=== PATIENT | female | born 1990 | race Caucasian/White ===

== ENCOUNTER 2021-12-03 19:56 | Emergency (ER) | payer OTHER, SELFPAY ==
[2021-12-03 20:04] VITALS: BP 131/57; PULSE 113; RESP 28; TEMP 38.8; O2SAT 95; BMI 29.0
--- NOTE | 2021-12-03 20:14 | XRR_ITS ---
PROCEDURE INFORMATION: Exam: XR Chest Exam date and time: 12/03/2021 8:25 PM Age: 31 years old Clinical indication: Shortness of breath; Additional info: SOB TECHNIQUE: Imaging protocol: XR of the chest. Views: 1 view. COMPARISON: No relevant prior studies available. FINDINGS: Lungs: Left lower lobe atelectasis versus minimal infiltrate. Pleural spaces: Unremarkable. No pleural effusion. No pneumothorax. Heart/Mediastinum: Unremarkable. No cardiomegaly. Bones/joints: Unremarkable. XR/XR chest 1V portable [id number] IMPRESSION: Left lower lobe atelectasis versus minimal infiltrate.
--- NOTE | 2021-12-03 20:17 | ED_ITS ---
HPI - SOB/Dyspnea General: Chief Complaint: Shortness of Breath/Dyspnea Stated Complaint: SOB/wheezing Time Seen by Provider: 12/03/21 20:09 Source: patient Mode of arrival: ambulatory Limitations: no limitations History of Present Illness: HPI Narrative: 31-year-old female who has a history of asthma states that she is been having a fever along with some generalized body aches over the last 2 days. States that over that time her asthma is worsened as well she has been having doing more breathing treatments. States that today her asthma was much worse. Patient does have wheezing here and tachypnea able to speak in full senses but has some moderate distress. She denies any chest pain or abdominal pain. No known sick contacts. Associated symptoms: Reports fever(s); Deny abdominal pain, chest pain, nausea or vomiting Review of Systems Const: Reports: fever(s) and chills Eyes: Denies: blurry vision or eye discomfort ENMT: Denies: throat pain or dental pain Card: Denies: chest pain Resp: Reports: dyspnea, non-productive cough and wheezing GI: Denies: abdominal pain, nausea, vomiting or diarrhea : Denies: dysuria Musc: Denies: neck pain or back pain Skin/Breast: Denies: rash Neuro: Denies: headache(s) Psych: Denies: depression Bin/Lymph: Denies: easy bruising All/Imm: Denies: urticaria PFSH ED PFSH: Medical History Asthma Social History Smoking and tobacco status: never smoked Physical Exam Const: COMMON NORMALS: patient oriented x3 and healthy appearing GENERAL APPEARANCE: in distress HENMT: COMMON NORMALS: normocephalic and atraumatic HEAD & SCALP: normocephalic and atraumatic Eye: COMMON NORMALS: Equal, round and reactive pupils present and EOMs intact bilaterally PUPIL: Yes Equal, round and reactive pupils present Neck/C-Spine: COMMON NORMALS: full ROM and supple Chest: COMMONS NORMALS: normal inspection of the chest and normal palpation of entire chest wall Resp: EFFORT & INSPECTION: Yes tachypneic and Yes respiratory distress AUSCULTATION: wheezes and diminished lung sounds Cardio: COMMON NORMALS: regular rate, regular rhythm and No murmurs present (Cardio) RATE: regular rate RHYTHM: regular rhythm GI: COMMON NORMALS: Normal to inspection, nondistended, normoactive bowel sounds present, Soft to palpation, non-tender and no masses PALPATION: Yes Soft to palpation Extremity: COMMON NORMALS: normal to inspection and full ROM Neuro: COMMON NORMALS: patient oriented x3, moves all extremities and no focal motor deficits Psych: COMMON NORMALS: mental status grossly normal, Normal thought process present and cooperative THOUGHT PROCESS: Normal thought process present Skin: COMMON NORMALS: no rashes or lesions noted and no wounds GENERAL SKIN EXAM: no rashes or lesions noted Course Vital Signs: Vital signs: Vital Signs Temperature 101.9 F H 12/03/21 20:04 Pulse Rate 100 12/03/21 20:23 Respiratory Rate 20 H 12/03/21 20:23 Blood Pressure 131/57 12/03/21 20:04 Pulse Oximetry 98 12/03/21 20:23 MDM - SOB/Dyspnea Medical Decision Making Patient presents here with asthma exacerbation likely from influenza she did test positive for influenza she feels much improved after steroids and breathing treatment no longer has any respiratory distress does not require any oxygen will start on Tamiflu along with a 5-day steroid taper she is stable for discharge is to follow-up with PCP and return if worsening. Lab Data : 12/03/21 20:20 12/03/21 20:20 Labs/Radiology: Radiology Impressions Chest X-Ray 12/03/21 20:14 IMPRESSION: Left lower lobe atelectasis versus minimal infiltrate. Laboratory Results WBC 3.3 10^3/uL (4.0-10.0) L 12/03/21 20:20 RBC 4.36 10^6/uL (4.1-5.3) 12/03/21 20:20 Hgb 12.4 g/dL (11.5-15.3) 12/03/21 20:20 Hct 37.3 % (37.0-47.0) 12/03/21 20:20 MCV 85.6 fl (81-99) 12/03/21 20:20 MCH 28.4 pg (28.0-34.0) 12/03/21 20:20 MCHC 33.2 g/dL (30.0-36.0) 12/03/21 20:20 RDW 12.9 % (12.1-15.1) 12/03/21 20:20 Plt Count 171 10^3/cmm (130-400) 12/03/21 20:20 MPV 11.1 fL (7.4-10.4) H 12/03/21 20:20 Neut % (Auto) 62.3 % 12/03/21 20:20 Lymph % (Auto) 20.8 % 12/03/21 20:20 Gilliam % (Auto) 15.4 % 12/03/21 20:20 Eos % (Auto) 0.6 % 12/03/21 20:20 Baso % (Auto) 0.6 % 12/03/21 20:20 Neut # (Auto) 2.06 10^3/uL (1.8-7.7) 12/03/21 20:20 Lymph # (Auto) 0.7 10^3/uL (0.8-4.8) L 12/03/21 20:20 Gilliam # (Auto) 0.5 10^3/uL (0.2-0.9) 12/03/21 20:20 Eos # (Auto) 0.0 10^3/uL (0.0-0.8) 12/03/21 20:20 Baso # (Auto) 0.0 10^3/uL (0.0-0.1) 12/03/21 20:20 Nucleated RBC % (auto) 0 % 12/03/21 20:20 Nucleated RBCs # 0.0 /100WBC 12/03/21 20:20 Sodium 135 mmol/L (136-145) L 12/03/21 20:20 Potassium 3.8 mmol/L (3.5-5.1) 12/03/21 20:20 Chloride 101 mmol/L (98-107) 12/03/21 20:20 Carbon Dioxide 22 mmol/L (22-29) 12/03/21 20:20 Anion Gap 15.8 (5-19) 12/03/21 20:20 BUN 8 mg/dL (6-20) 12/03/21 20:20 Creatinine 0.8 mg/dL (0.5-0.9) 12/03/21 20:20 GFR Calculation 82.6 mL/min (90-130) L 12/03/21 20:20 Glucose 96 mg/dL (65-115) 12/03/21 20:20 Calculated Osmolality 278 mOsm/kg (285-295) L 12/03/21 20:20 Calcium 8.8 mg/dL (8.5-10.5) 12/03/21 20:20 Total Bilirubin 0.2 mg/dL (0.15-1.2) 12/03/21 20:20 AST 22 U/L (0-32) 12/03/21 20:20 ALT 18 U/L (0-33) 12/03/21 20:20 Alkaline Phosphatase 66 IU/L (35-105) 12/03/21 20:20 Total Protein 6.9 g/dL (6.6-8.7) 12/03/21 20:20 Albumin 4.0 g/dL (3.5-5.2) 12/03/21 20:20 Globulin 2.9 g/dL (1.3-4.6) 12/03/21 20:20 Influenza Type A Ag Positive (Negative) H 12/03/21 20:40 Influenza Type B Ag Negative (Negative) 12/03/21 20:40 SARS-CoV-2 Ag (Rapid) Negative (Negative) 12/03/21 20:40 Discharge Plan Discharge Patient Disposition: Home Clinical Impression: Asthma with exacerbation, Influenza A Prescriptions: New prednisone 50 mg tablet 50 mg PO DAILY Qty: 5 0RF Tamiflu 75 mg capsule 75 mg PO Q12H 5 Days Qty: 10 0RF No Action citalopram 20 mg tablet 20 mg PO DAILY 0RF albuterol sulfate 90 mcg/actuation HFA aerosol inhaler 2 puff INHALATION Q6H PRN (Reason: Shortness Of Breath) 0RF Discharge Orders: Discharge ED (Routine); Ordered 12/03/21 Ordered By: Hiren Tiwari Discharge Diet: Advance as tolerated Discharge Activity: Resume usual activity Patient Instructions: Asthma (ED), Influenza (ED) Coding Level of Care Code ED Neurodiagnostic Tech for Tino Fwd Exam Comprehensive
[2021-12-03] MEDS: ipratropium-albuterol 3 mL Neb INHALATION (20:21)
[2021-12-03 20:23] VITALS: PULSE 100; RESP 20; O2SAT 98
[2021-12-03 20:35] LABS: Basophils % 0.6 %; Eosinophils % 0.6 %; Hematocrit 37.3 % (37.0-47.0); Hemoglobin 12.4 g/dL (11.5-15.3); Lymphocytes # 0.7 10^3/uL (0.8-4.8); Lymphocytes % 20.8 %; Mean Corpuscular HGB Conc 33.2 g/dL (30.0-36.0); Mean Corpuscular Hemoglobin 28.4 pg (28.0-34.0); Mean Corpuscular Volume 85.6 fl (81-99); Mean Platelet Volume 11.1 fL (7.4-10.4); Monocytes # 0.5 10^3/uL (0.2-0.9); Monocytes % 15.4 %; Neutrophils # 2.06 10^3/uL (1.8-7.7); Neutrophils % 62.3 %; Nucleated Red Blood Cells % 0 %; Platelet Count 171 10^3/cmm (130-400); Red Blood Count 4.36 10^6/uL (4.1-5.3); Red Cell Distribution Width 12.9 % (12.1-15.1); White Blood Count 3.3 10^3/uL (4.0-10.0)
[2021-12-03] MEDS: acetaminophen 500 mg Tablet 1000 MG PO (20:35)
[2021-12-03] MEDS: sodium chloride 0.9% 1,000 ML 999 ML IV (20:35)
[2021-12-03 21:13] LABS: Alanine Aminotransferase 18 U/L (0-33); Alkaline Phosphatase 66 IU/L (35-105); Anion Gap 15.8 (5-19); Aspartate Amino Transferase 22 U/L (0-32); Blood Urea Nitrogen 8 mg/dL (6-20); Calcium 8.8 mg/dL (8.5-10.5); Carbon Dioxide 22 mmol/L (22-29); Chloride 101 mmol/L (98-107); Globulin 2.9 g/dL (1.3-4.6); Glomerular Filtration Rate 82.6 mL/min (90-130); Glucose 96 mg/dL (65-115); Osmolality Calculated 278 mOsm/kg (285-295); Potassium 3.8 mmol/L (3.5-5.1); Sodium 135 mmol/L (136-145); Total Bilirubin 0.2 mg/dL (0.15-1.2); Total Protein 6.9 g/dL (6.6-8.7)
[2021-12-03 21:29] LABS: Influenza A by IFA Positive (Negative); Influenza B by IFA Negative (Negative); SARS Covid-2 Antigen Negative (Negative)
[2021-12-03 21:51] VITALS: BP 125/77; PULSE 106; RESP 18; TEMP 37.5; O2SAT 98
== END 2021-12-03 21:54 | disposition home or self-care (01) ==
PROVIDERS: Emergency Provider Emergency Medicine
DX: J45.901 Unspecified asthma with (acute) exacerbation (principal); J10.1 Influenza due to other identified influenza virus with other respiratory manifestations
CPT/HCPCS: 71045; 80053; 85025; 87426; 87804; 94640; 96361; 96374; 99283; J2930; J7030; J7611

== ENCOUNTER → 2022-06-18 13:44 | Outpatient (BNVA) | payer OTHER, SELFPAY | PROVIDERS: PCP Nurse Practitioner Family; Visit Provider Nurse Practitioner Family | DX: N92.6 Irregular menstruation, unspecified (principal); R53.83 Other fatigue | CPT/HCPCS: 80048; 84443; 85025 ==

== ENCOUNTER → 2022-08-13 11:45 | Outpatient (BNVA) | payer OTHER, SELFPAY | PROVIDERS: PCP Nurse Practitioner Family; Visit Provider Nurse Practitioner Women's Health | DX: N93.9 Abnormal uterine and vaginal bleeding, unspecified (principal); Z12.4 Encounter for screening for malignant neoplasm of cervix; N72 Inflammatory disease of cervix uteri | CPT/HCPCS: 84402; 87624 ==

== ENCOUNTER → 2022-09-01 11:21 | Outpatient (BNVA) | payer OTHER, SELFPAY | PROVIDERS: PCP Nurse Practitioner Family; Visit Provider Nurse Practitioner Women's Health | DX: N93.9 Abnormal uterine and vaginal bleeding, unspecified (principal) | CPT/HCPCS: 76830 ==

== ENCOUNTER 2023-05-04 15:11 | Outpatient (CLI) | payer SELFPAY ==
--- NOTE | 2023-05-04 15:16 | CT_ITS ---
WS: [id number] CTA HEAD AND NECK TECHNIQUE: Contrast enhanced CTA of the head and neck with coronal and sagittal reformatted images an d maximum intensity projection (MIP) images. NASCET criteria utilized. CLINICAL INFORMATION: PULSATILE TINNITUS, LEFT EAR COMPARISON: None. DLP: 1233.[address] scans at [facility] use at least one of these dose optimization techniques: automated e xposure control; mA and/or kV adjustment per patient size (includes targeted exams where dose is matc hed to clinical indication); or iterative reconstruction. FINDINGS: No evidence of intracranial hemorrhage or mass effect. Ventricular system and basilar ciste rns are patent. Normal gil-white differentiation. Mild mucosal thickening at the RIGHT mastoid tip. LEFT mastoid air cells are well aerated. Paranasal sinuses are well aerated. Normal posterior nasopha rynx. RIGHT: RIGHT common carotid artery is patent. No significant RIGHT ICA stenosis. RIGHT ICA is patent to the skull base. LEFT: LEFT common carotid artery is patent. No significant LEFT ICA stenosis. LEFT ICA is patent to t he skull base. Dominant RIGHT vertebral artery. Tiny hypoplastic LEFT vertebral artery mainly ends in PICA. Proximal basilar artery is patent. Basilar artery is patent. Patent posterior communicating arteries bilaterally. Normal vascularity to the RECOVERY COACH territory bilaterally. Both ICAs are patent at the skull base. Small RIGHT A1 segment. Patent anterior communicating artery. Normal vascularity to the SHELLEY and MCA territories bilaterally. No evidence of proximal flow-limiting stenosis or aneurysm. No evidence of aberrant internal carotid arteries. High riding LEFT jugular bulb. No evidence of dehi scence jugular bulb. LEFT middle ear appears well aerated. IMPRESSION: 1. No significant ICA stenosis bilaterally. 2. LEFT mastoid air cells and middle ear is well aerated. No evidence aberrant ICA. 3. High riding LEFT jugular bulb in comparison to the RIGHT. No evidence of dehiscent jugular bulb. 4. RIGHT dominant vertebral artery. Tiny LEFT vertebral artery is patent and ends in PICA. 5. Otherwise normal intracranial CTA. 6. No other suspicious findings.
[2023-05-04] MEDS: iohexol 350 mg/mL 500 mL Btl (per mL) IV (15:38)
== END 2023-05-04 15:12 | disposition home or self-care (01) ==
LOC: RAD 15:13
PROVIDERS: PCP Nurse Practitioner Family; Visit Provider Otolaryngology
DX: H93.A2 Pulsatile tinnitus, left ear (principal); Z01.118 Encounter for examination of ears and hearing with other abnormal findings
CPT/HCPCS: 70496; 70498; Q9967

== ENCOUNTER → 2023-06-02 08:00 | Outpatient (BNVA) | payer SELFPAY | PROVIDERS: Visit Provider Family Medicine | DX: F41.9 Anxiety disorder, unspecified (principal); R53.83 Other fatigue; R63.5 Abnormal weight gain | CPT/HCPCS: 80053; 80061; 84439; 84443; 85025 ==

== ENCOUNTER 2023-06-29 08:34 | Outpatient (CLI) | payer SELFPAY ==
--- NOTE | 2023-06-29 08:45 | MR_ITS ---
WS: [id number] MRI HEAD WITH CONTRAST WITH ATTENTION TO THE INTERNAL AUDITORY CANALS TECHNIQUE: Sagittal T1, T2 axial, T2 axial flair, axial susceptibility weighted imaging, axial diffus ion weighted images, and coronal T2 images were obtained. Pre and post T1 axial and post T1 coronal i mages. ADC and FSPGR images. Post gadolinium images with attention to the internal auditory canals. A xial fiesta imaging. CLINICAL INFORMATION: PULSATILE TINNITUS,L EAR COMPARISON: None. FINDINGS: High-riding LEFT jugular bulb relative to the RIGHT. No evidence of dehiscence. Proximal 7th and 8th cranial nerves are normal in appearance. No evidence of enhancing IAC or CP angle mass. Normal trigem inal nerve root entry zones. No abnormal intracranial enhancement. No evidence of restricted diffusion to suggest acute ischemia. No suspicious intracranial signal abno rmalities. Normal posterior fossa. Normal vascular flow voids at the skull base. No extra-axial fluid collections. No evidence of mass or mass effect. Paranasal sinuses are well aerated. Mastoid air susu ls are well aerated. No hemosiderin on susceptibly weighted images. IMPRESSION: 1. Proximal 7th and 8th cranial nerves are normal in appearance. No evidence of enhancing IAC or CP angle mass. 2. Mastoid air cells are well aerated. 3. No suspicious intracranial signal abnormalities. 4. No hemosiderin on susceptibly weighted images. 5. High riding LEFT jugular bulb relative to the RIGHT. No evidence of jugular bulb dehiscence. This is unchanged. 6. No other suspicious findings.
[2023-06-29] MEDS: gadobenate dimeglumine 20 mL vial IV (09:38)
== END 2023-06-29 08:35 | disposition home or self-care (01) ==
PROVIDERS: PCP Family Medicine; Visit Provider Otolaryngology
DX: H93.A2 Pulsatile tinnitus, left ear (principal)
CPT/HCPCS: 70553; 80053; 80061; 84439; 84443; 85025; A9577

== ENCOUNTER → 2023-12-29 09:15 | Outpatient (BNVA) | payer SELFPAY | PROVIDERS: PCP Family Medicine; Visit Provider Family Medicine | DX: J01.90 Acute sinusitis, unspecified (principal); B96.89 Other specified bacterial agents as the cause of diseases classified elsewhere; J45.990 Exercise induced bronchospasm; J45.40 Moderate persistent asthma, uncomplicated; R53.83 Other fatigue; E55.9 Vitamin D deficiency, unspecified; R79.89 Other specified abnormal findings of blood chemistry | CPT/HCPCS: 80053; 80061; 82306; 82607; 84439; 84443; 84481; 85027 ==